=== PATIENT | female | born 1985 | race Caucasian/White ===

== ENCOUNTER 2016-12-24 06:31 | Inpatient (IN) | payer OTHER ==
[~2016-12-24] VITALS: Ht 167.6 cm; Wt 111.8 kg
[2016-12-24] VITALS (25 sets, daily range): BP systolic 100–136; BP diastolic 50–85
[~2016-12-24 06:31] MED LIST: BENADRYL25 MG PO; CEFTIN500 MG PO; Motrin PO; PRENATAL TABLE1 EAC3 PO; Percocet 5/325,Endoc PO; ZOFRAN ODT8 MG PO
[2016-12-24 09:56] LABS: EOSINOPHIL (%) 0.9 % (0-5); EOSINOPHIL COUNT 0.1 K/uL (0-0.3); HEMATOCRIT 38.1 % (36.0-46.0); IMMATURE GRANULOCYTE (%) 0.6 % (0.0-0.7); IMMATURE GRANULOCYTE COUNT 0.1 K/uL; INSTRUMENT ABS NEUTROPHIL CT 9.9 K/uL; LYMPHOCYTE COUNT 3.2 K/uL (1.0-2.8); MCH 32.7 PG (29.0-34.0); MCHC 33.6 G/DL (30.0-36.0); MCV 97.4 FL (83-99); MONOCYTE (%) 4.3 % (3-12); MONOCYTE COUNT 0.6 K/uL (0-0.8); NEUTROPHIL (%) 71.3 % (45-76); NEUTROPHIL COUNT 9.9 K/uL (1.8-6.4); PLATELET COUNT 245 K/uL (156-360); RBC DIS.WIDTH-CV 14.8 % (11.8-14.6); RED BLOOD COUNT 3.91 M/uL (3.80-5.20); WHITE BLOOD COUNT 13.9 K/uL (4.1-10.2)
[2016-12-24] MEDS ORDERED: IBUPROFEN800 MG PO (23:51)
[2016-12-24] MEDS ORDERED: ENDOCET 5-3251 EACH PO (23:51)
[2016-12-25] VITALS (9 sets, daily range): BP systolic 96–130; BP diastolic 42–72
[2016-12-25 07:56] LABS: EOSINOPHIL (%) 0.1 % (0-5); HEMATOCRIT 30.8 % (36.0-46.0); IMMATURE GRANULOCYTE (%) 0.5 % (0.0-0.7); IMMATURE GRANULOCYTE COUNT 0.1 K/uL; INSTRUMENT ABS NEUTROPHIL CT 12.1 K/uL; LYMPHOCYTE COUNT 2.4 K/uL (1.0-2.8); MCH 32.6 PG (29.0-34.0); MCHC 32.8 G/DL (30.0-36.0); MCV 99.4 FL (83-99); MEAN PLAT.VOLUME 10.3 uM^3 (9.5-12.4); MONOCYTE (%) 5.5 % (3-12); MONOCYTE COUNT 0.8 K/uL (0-0.8); NEUTROPHIL (%) 78.5 % (45-76); NEUTROPHIL COUNT 12.1 K/uL (1.8-6.4); PLATELET COUNT 197 K/uL (156-360); RBC DIS.WIDTH-SD 54.5 % (39-53); WHITE BLOOD COUNT 15.4 K/uL (4.1-10.2)
[2016-12-26 03:00] VITALS: BP 107/57
[2016-12-26 08:10] VITALS: BP 115/72
[2016-12-26 10:54] VITALS: BP 99/56
[2016-12-26 15:18] VITALS: BP 113/58
[2016-12-26 23:07] VITALS: BP 115/57
[2016-12-27 06:07] VITALS: BP 136/69
[2016-12-27] MEDS ORDERED: PRENATAL TABLE1 EAC3 PO (10:42)
[2016-12-27] MEDS ORDERED: COLACE100 MG PO (10:42)
== END 2016-12-27 13:44 | disposition home or self-care (01) | DRG 765 ==
LOC: LDRP-OP → 2WEST 06:32
PROVIDERS: Midwife; Obstetrics & Gynecology
DX: O36.63X0 Maternal care for excessive fetal growth, third trimester, not applicable or unspecified (principal); O63.9 Long labor, unspecified; D62 Acute posthemorrhagic anemia; O99.214 Obesity complicating childbirth; O64.0XX0 Obstructed labor due to incomplete rotation of fetal head, not applicable or unspecified; O76 Abnormality in fetal heart rate and rhythm complicating labor and delivery; O77.0 Labor and delivery complicated by meconium in amniotic fluid; O62.1 Secondary uterine inertia; O99.02 Anemia complicating childbirth; Z3A.40 40 weeks gestation of pregnancy; Z37.0 Single live birth
CPT/HCPCS: 85025; 86850; 86900; 86901; C1755; J0595; J0690; J1200; J2274; J2405; J7120